=== PATIENT | male | born 1945 | race Caucasian/White ===

== ENCOUNTER → 2020-09-26 09:16 | Outpatient (CLI) | payer MEDICARE, SELFPAY ==
[2020-09-26 10:39] LABS: Add Manual Diff / Slide Review NO; Basophils Absolute Auto 100 /uL (0-100); Basophils Percent Auto 0.9 % (0-2); Eosinophils Absolute Auto 200 /uL (0-450); Hematocrit 47.3 % (41-53); Lymphocytes Absolute Auto 2400 /uL (1100-4500); Lymphocytes Percent Auto 34.9 % (25-40); Mean Corpuscular HGB Conc 33.8 % (30-36); Mean Corpuscular Hemoglobin 31.6 PG (26-34); Mean Corpuscular Volume 93.4 fL (80-100); Monocytes Absolute Auto 600 /uL (0-900); Monocytes Percent Auto 8.5 % (3-14); Neutrophils Absolute Auto 3600 /uL (1500-7000); Neutrophils Percent Auto 52.7 % (50-75); Platelet Count 188 X10^3/uL (150-400); Red Blood Cell Count 5.06 X10^6/uL (4.5-5.9); Red Cell Distribution Width 13.9 % (11.6-14.8); White Blood Cell Count 6.8 X10^3/uL (4.5-11.0)
[2020-09-26 11:02] LABS: Alanine Aminotransferase 28 IU/L (<50); Albumin 4.7 g/dL (3.5-5.0); Albumin Globulin Ratio 1.6 (1.0-2.8); Alkaline Phosphatase 90 U/L (38-126); Aspartate Aminotransferase 29 IU/L (17-59); BUN Creatinine Ratio 14.6 (6-22); Bilirubin Total 0.5 mg/dL (0.2-1.3); Blood Urea Nitrogen 15 mg/dL (9-20); Calcium 9.8 mg/dL (8.4-10.2); Carbon Dioxide 29 mmol/L (22-32); Chloride 105 mmol/L (98-107); Cholesterol 153 mg/dL (140-199); Estimated Glomerular Filt Rate > 60.0 mL/min (>60); Globulin 2.9 g/dL (1.7-4.1); Glucose 91 mg/dL (80-110); HDL Cholesterol 48 mg/dL (40-60); HEMOLYSIS < 15 (0-50); LDL Cholesterol Calculated 79 mg/dL (<100); Potassium 3.6 mmol/L (3.4-5.1); Sodium 142 mmol/L (137-145); Total Protein 7.6 g/dL (6.3-8.2); Triglycerides 129 mg/dL (35-150)
== END ==
PROVIDERS: PCP Family Medicine; Referring Provider Family Medicine; Visit Provider Family Medicine
DX: E78.5 Hyperlipidemia, unspecified (principal)
CPT/HCPCS: 36415; 80053; 80061; 85025

== ENCOUNTER → 2021-03-29 11:06 | Outpatient (CLI) | payer MEDICARE, SELFPAY ==
[2021-03-29] MEDS: COVID-19 VACC #3, MRNA(MOD) 50 MCG/0.25 ML VIAL IM (11:16)
== END ==
PROVIDERS: PCP Family Medicine; Visit Provider Internal Medicine
DX: Z23 Encounter for immunization (principal)
CPT/HCPCS: 0013A; 91301

== ENCOUNTER → 2022-03-13 06:59 | Outpatient (CLI) | payer MEDICARE, SELFPAY ==
[2022-03-13 09:48] LABS: Add Manual Diff / Slide Review NO; Basophils Absolute Auto 100 /uL (0-100); Basophils Percent Auto 0.8 % (0-2); Eosinophils Absolute Auto 300 /uL (0-450); Eosinophils Percent Auto 3.9 % (2-4); Hematocrit 45.9 % (41-53); Hemoglobin 15.5 g/dL (13.5-17.5); Lymphocytes Absolute Auto 2700 /uL (1100-4500); Lymphocytes Percent Auto 37.6 % (25-40); Mean Corpuscular HGB Conc 33.7 % (30-36); Mean Corpuscular Volume 92.1 fL (80-100); Monocytes Absolute Auto 700 /uL (0-900); Monocytes Percent Auto 9.6 % (3-14); Neutrophils Absolute Auto 3400 /uL (1500-7000); Neutrophils Percent Auto 48.1 % (50-75); Platelet Count 195 X10^3/uL (150-400); Red Blood Cell Count 4.98 X10^6/uL (4.5-5.9); Red Cell Distribution Width 14.3 % (11.6-14.8); White Blood Cell Count 7.1 X10^3/uL (4.5-11.0)
[2022-03-13 10:23] LABS: Alanine Aminotransferase 35 IU/L (<50); Albumin 4.3 g/dL (3.5-5.0); Albumin Globulin Ratio 1.5 (1.0-2.8); Alkaline Phosphatase 101 U/L (38-126); Aspartate Aminotransferase 28 IU/L (17-59); BUN Creatinine Ratio 15.3 (6-22); Bilirubin Total 0.5 mg/dL (0.2-1.3); Blood Urea Nitrogen 15 mg/dL (9-20); Carbon Dioxide 26 mmol/L (22-32); Chloride 103 mmol/L (98-107); Cholesterol 154 mg/dL (140-199); Estimated Glomerular Filt Rate > 60 mL/min (>60); Globulin 2.8 g/dL (1.7-4.1); Glucose 78 mg/dL (80-110); HDL Cholesterol 49 mg/dL (40-60); HEMOLYSIS < 15 (0-50); LDL Cholesterol Calculated 90 mg/dL (<100); Potassium 3.5 mmol/L (3.4-5.1); Sodium 140 mmol/L (137-145); Total Protein 7.1 g/dL (6.3-8.2); Triglycerides 74 mg/dL (35-150)
[2022-03-13 10:42] LABS: Prostate Specific Antigen Scrn 4.41 ng/mL (0.1-4.0)
== END ==
PROVIDERS: PCP Family Medicine; Referring Provider Family Medicine; Visit Provider Family Medicine
DX: E78.5 Hyperlipidemia, unspecified (principal); Z12.5 Encounter for screening for malignant neoplasm of prostate; R39.9 Unspecified symptoms and signs involving the genitourinary system; Z83.3 Family history of diabetes mellitus
CPT/HCPCS: 36415; 80053; 80061; 85025; G0103

== ENCOUNTER → 2022-09-01 13:17 | Outpatient (CLI) | payer MEDICARE, SELFPAY ==
--- NOTE | 2022-09-01 13:19 | DI.RAD.S_ITS ---
PROCEDURE: XR CHEST 2V INDICATIONS: Ongoing cough TECHNIQUE: 2 views of the chest were acquired. COMPARISON: None. FINDINGS: Surgical changes and devices: None. Lungs and pleura: Lungs are clear. No pleural effusions or pneumothorax. Mediastinum: Mediastinal contours are normal. Heart size is normal. Bones and chest wall: No suspicious bony abnormalities. Soft tissues appear unremarkable. IMPRESSION: No evidence acute pulmonary process. Dictated by: Rick Mccarty M.D. on 09/01/2022 at 13:42 Approved by: Rick Mccarty M.D. on 09/01/2022 at 13:43
== END ==
PROVIDERS: PCP Family Medicine; Referring Provider Physician Assistant; Visit Provider Physician Assistant
DX: R06.00 Dyspnea, unspecified (principal)
CPT/HCPCS: 71046

== ENCOUNTER → 2022-09-16 10:25 | Outpatient (CLI) | payer MEDICARE, SELFPAY ==
--- NOTE | 2022-09-16 10:28 | DI.CT.S_ITS ---
PROCEDURE: CT CHEST WO CON INDICATIONS: persistent cough TECHNIQUE: Noncontrast 5 mm thick sections acquired from the pulmonary apices to the posterior costophrenic angles. 1 mm lung window, 5 mm thick coronal and sagittal and 7 mm axial MIP reformats were then acquired. For radiation dose reduction, the following was used: automated exposure control, adjustment of mA and/or kV according to patient size. COMPARISON: [facility], CR, XR CHEST 2V, 09/01/2022, 13:18. FINDINGS: Lungs and pleura: No consolidation, significant ground-glass opacity, pleural effusions or pneumothorax. Mediastinum: No pericardial effusion. Thoracic aorta and central pulmonary arteries are normal in size. Esophagus is normal in caliber. Bones and chest wall: Multilevel degenerative change of the visualized spine. No axillary or supraclavicular adenopathy by size criteria. Abdomen: Small hypodensity in hepatic segment 4 is too small to characterize but could potentially represent a cyst or hemangioma. IMPRESSION: No consolidation or pleural effusion. Dictated by: Ehsan Bach M.D. on 09/16/2022 at 15:22 Approved by: Ehsan Bach M.D. on 09/16/2022 at 15:29
== END ==
PROVIDERS: PCP Family Medicine; Referring Provider Family Medicine; Visit Provider Family Medicine
DX: R05.9 Cough, unspecified (principal)
CPT/HCPCS: 71250

== ENCOUNTER → 2022-11-07 08:50 | Outpatient (CLI) | payer MEDICARE, SELFPAY ==
[2022-11-07 11:22] LABS: Cholesterol 166 mg/dL (140-199); HDL Cholesterol 57 mg/dL (40-60); LDL Cholesterol Calculated 91 mg/dL (<100); Triglycerides 89 mg/dL (35-150)
== END ==
PROVIDERS: PCP Family Medicine; Referring Provider Family Medicine; Visit Provider Family Medicine
DX: E78.5 Hyperlipidemia, unspecified (principal)
CPT/HCPCS: 36415; 80061

== ENCOUNTER → 2023-02-17 09:45 | Outpatient (CLI) | payer MEDICARE, SELFPAY ==
[2023-02-17 11:03] LABS: Cholesterol 196 mg/dL (140-199); HDL Cholesterol 50 mg/dL (40-60); LDL Cholesterol Calculated 128 mg/dL (<100); Triglycerides 91 mg/dL (35-150)
[2023-02-17 11:29] LABS: Prostate Specific Antigen Scrn 4.76 ng/mL (0.1-4.0)
== END ==
PROVIDERS: PCP Family Medicine; Referring Provider Family Medicine; Visit Provider Family Medicine
DX: E78.5 Hyperlipidemia, unspecified (principal); Z12.5 Encounter for screening for malignant neoplasm of prostate; N52.9 Male erectile dysfunction, unspecified
CPT/HCPCS: 36415; 80061; G0103

== ENCOUNTER → 2023-03-25 13:15 | Outpatient (CLI) | payer MEDICARE, SELFPAY ==
--- NOTE | 2023-03-25 13:17 | DI.MRI.S_ITS ---
PROCEDURE: MR PELVIC PROSTATE PROTOCOL INDICATIONS: Elevated and rising PSA TECHNIQUE: Coronal HASTE, axial T1 FSE with fat saturation, 3-plane nonbreath-hold T2 FSE. After the administration of contrast, dynamic axial, delayed axial and coronal VIBE or 2-D FLASH with fat saturation through the pelvis. Diffusion weighted imaging and ADC was performed. COMPARISON: None. FINDINGS: Image quality: Diffusion weighted and dynamic contrast enhanced images are diagnostic. Prostate: Gland size is 5.2 x 6.1 x 5.8 cm; ellipsoid gland volume is 95.7 mL. There is moderate transition zone hypertrophy and mild compression of the peripheral zone. Throughout most of the transition zone, there is diffuse moderate T2 hypointensity with a few T2 hyperintense BPH nodules present. Lesion 1: At the mid gland level posteriorly in the left (and right) peripheral zone near the midline, there is erased charcoal appearance blurring the pseudo capsule, 4/13, without significant diffusion or dynamic enhancement abnormality. Extracapsular extension cannot be excluded. PI-RADS 3. Lesion 2: In the right posterolateral peripheral zone at the mid gland level, 4/11, there is moderate amorphous T2 hypointensity with mild restricted diffusion and vague, heterogeneous ADC hypointensity. No dynamic contrast enhancement. PI-RADS 4. Lesion 3: In the left anterior to mid transition zone at the gland base, there is an amorphous, ovoid lesion with indistinct margin and moderate T2 hypointensity measuring roughly 1.7 cm, series 4, image 9 and coronal series 5, image 10. No corresponding restricted diffusion and mild, heterogeneous ADC hypointensity. There is dynamic enhancement. Differential diagnosis includes BPH nodule. PI-RADS 3. Genitourinary system: Bladder wall thickness is normal. Distal ureters are non distended. Bowel and peritoneum: No pathologic free pelvic fluid. Inferior colon and small bowel loops are normal in caliber. Nodes and vessels: No pelvic or inguinal adenopathy by size criteria. Numerous tiny lymph nodes are present throughout the pelvic fat, particularly sidewalls and perirectal. Iliac vessels are normal in caliber. Soft tissues: Left-sided fat and colon containing indirect inguinal hernia. Bones: Marrow demonstrates normal overall signal, without lesions to suggest metastases. IMPRESSION: 1. Enlarged prostate with overall unusual diffuse T2 hypointensity with loss of architecture and peripheral and transition zone. Finding is suspicious for diffuse low level involvement. 2. A few discrete lesions in the peripheral zone are suspicious though are categorized as PI-RADS 3 and PI-RADS 4. 3. Left transition zone lesion is PI-RADS 3 due to lack of restricted diffusion. 4. No pelvic lymphadenopathy by size criteria. No aggressive osseous abnormality. Dictated by: Tracy Joseph M.D. on 03/25/2023 at 23:38 Approved by: Tracy Joseph M.D. on 03/26/2023 at 0:00
== END ==
PROVIDERS: PCP Family Medicine; Referring Provider Urology; Visit Provider Urology
DX: N40.0 Benign prostatic hyperplasia without lower urinary tract symptoms (principal); N42.9 Disorder of prostate, unspecified; R97.20 Elevated prostate specific antigen [PSA]
CPT/HCPCS: 72197

== ENCOUNTER → 2023-05-02 13:43 | Outpatient (CLI) | payer MEDICARE, SELFPAY | PROVIDERS: PCP Family Medicine; Visit Provider Nurse Practitioner Family | DX: R30.0 Dysuria (principal) | CPT/HCPCS: 87086 ==

== ENCOUNTER 2023-05-12 10:17 | Day surgery (SDC) | payer MEDICARE, SELFPAY ==
[2023-04-22 14:42] VITALS: BMI 25.7
[2023-05-12] MEDS: LACTATED RINGERS 1,000 ML 21 ML IV (10:52)
[2023-05-12 10:56] VITALS: BP 180/87; PULSE 77; RESP 20; TEMP 36.4; O2SAT 97; BMI 25.7
--- NOTE | 2023-05-12 11:04 | PM.PREOP ---
Pre-operative Note COVID-19 COVID-19 status: Not tested Interval Note History & Physical reviewed/Exam performed by Physician: Yes Changes to H&P: No
[2023-05-12] MEDS: GENTAMICIN 80 MG in SODIUM CHLORIDE 0.9% 100 ML 102 MG IV (11:34)
[2023-05-12] MEDS: LIDOCAINE 2% INJ MDV 20ML 20 ML INJ (11:35)
--- NOTE | 2023-05-12 11:38 | SUR.OPER ---
Lithotomy on padded OR bed, head on pillow, arms secured on padded arm boards at <90 degrees abduction. Legs secured in padded yellow fins stirrups.
--- NOTE | 2023-05-12 11:52 | PM.OP.1 ---
Procedure & Clinicians Procedure: Transrectal ultrasound with needle biopsy of the prostate Same procedure as scheduled: Yes Indications: This 77-year-old male was found to have an elevated PSA went on to have MRI of the prostate which revealed a PI-RADS 4 lesion in the right mid peripheral prostate as well as some PI-RADS 3 lesions scattered throughout the prostate. He presents at this time for transrectal ultrasound needle biopsy of the prostate. This is being done in the operating room under anesthetic because of his previous colon surgeries and significant pain experienced in the clinic. Patient comes with bowel prep, oral antibiotics and gentamicin. Surgeon: hTa Marlow Click Yes if Unassisted: Yes Anesthesia Type: General Operative Notes Findings: At ultrasound the seminal vesicles and ampulla vas were normal position configuration and echotexture. The bladder was only partially filled so definitive comment can not be made but what was seen appeared normal with perhaps some slight thickening of the wall of the bladder. The ureteral jets were not observed. The outlined the prostate does appear preserved without evidence of extracapsular extension there were a number of stones in the prostate no true hypoechoic lesion there was an irregular area on the right in the mid gland which was biopsied. Prostate was measured at 75.09 mL. Biopsies were taken in the following fashion on the right there were 2 samples taken from the base, 4 samples taken from the right mid gland with the irregularity observe specifically being target for 1 of the samples. And then from the right apex 2 samples. On the left there were 2 samples from the base, 3 samples from the mid gland where there was a PI-RADS 3 lesion and 2 samples from the apex. Closure Type: not applicable Specimen(s): other (Prostate core samples) Prosthetic devices, grafts, tissues, transplants, or devices: None Procedure in detail: Procedure in detail: After informed consent was obtained, the patient was identified and brought to the operating room where he was placed in a supine position on the operative table. Once there anesthesia was induced and maintained. Ensuring an adequate level of anesthesia the patient was transitioned to the lithotomy position. Ensuring an adequate level of anesthesia, after time-out and ensuring administration of the antibiotics a digital exam was performed and showed that the patient had an empty rectal vault. Patient then had 2% viscous lidocaine instilled within the rectum allowing time for a block to set up ultrasound probe was inserted and periprostatic block with lidocaine was then performed. Serial images were then taken through the transverse and longitudinal planes of the prostate with pest control service representative images being collected via the image collection device. Biopsies were then taken as noted above after the prostate had been measured. With the biopsies in hand the prostate measured the ultrasound probe was removed the patient was awakened having tolerated the procedure well there were no complications. The lubricant was then cleaned from the rectal area digital exam performed and there was minimal blood noted. Patient will follow-up with the biopsy results. Complications: none Post-operative Condition: stable Disposition: PACU Plan for aftercare: Follow-up with biopsy results in my office.
[2023-05-12 11:54] VITALS: BP 97/58; PULSE 90; RESP 16; TEMP 36.9; O2SAT 94
[2023-05-12 11:58] VITALS: BP 102/65; PULSE 15; RESP 95
[2023-05-12 12:05] VITALS: BP 117/69; PULSE 80; RESP 14; O2SAT 95
[2023-05-12 12:10] VITALS: BP 120/78; PULSE 81; RESP 17; O2SAT 96
[2023-05-12 12:16] VITALS: BP 146/82; PULSE 78; RESP 12; O2SAT 95
== END 2023-05-12 12:41 | disposition home or self-care (01) ==
PROVIDERS: PCP Family Medicine; Referring Provider Urology; Visit Provider Urology
PROC: 0VH071Z Insertion of Radioactive Element into Prostate, Via Natural or Artificial Opening (ICD-10-PCS; CPT 55876; principal; 2023-05-12 11:45)
DX: N42.89 Other specified disorders of prostate (principal); R97.20 Elevated prostate specific antigen [PSA]; N42.0 Calculus of prostate
CPT/HCPCS: 55700; 76872; J2704; J3010; J3490

== ENCOUNTER → 2023-08-20 08:00 | Outpatient (CLI) | payer MEDICARE, SELFPAY ==
[2023-08-20 09:30] LABS: Cholesterol 150 mg/dL (140-199); HDL Cholesterol 50 mg/dL (40-60); LDL Cholesterol Calculated 87 mg/dL (<100); Triglycerides 64 mg/dL (35-150)
== END ==
PROVIDERS: PCP Family Medicine; Referring Provider Urology; Visit Provider Urology
DX: C61 Malignant neoplasm of prostate (principal); E78.5 Hyperlipidemia, unspecified
CPT/HCPCS: 36415; 80061; 84153

== ENCOUNTER → 2023-11-19 08:37 | Outpatient (CLI) | payer MEDICARE, SELFPAY ==
[2023-11-19 11:01] LABS: Prostate Specific Antigen 5.55 ng/mL (0.10-4.00)
== END ==
LOC: LAB 08:41
PROVIDERS: PCP Family Medicine; Referring Provider Urology; Visit Provider Urology
DX: R97.20 Elevated prostate specific antigen [PSA] (principal)
CPT/HCPCS: 36415; 84153

== ENCOUNTER 2024-01-13 11:42 | Day surgery (SDC) | payer MEDICARE, SELFPAY ==
--- NOTE | 2024-01-12 07:45 | P.HP_ITS ---
History of Present Illness History of Present Illness Date Patient Seen: 01/13/24 Time Patient Seen: 14:42 Chief complaint: SDC Narrative: 78-year-old man with a symptomatic inguinal hernia here for elective repair. No interval change in health since last H&P. [facility] Medical History Left inguinal hernia Nocturia Prostate cancer Abnormal finding on imaging Dementia with behavioral disturbance Secondhand smoke exposure Urinary frequency History of urinary tract infection Rising PSA level Elevated PSA Cough Hx of colon cancer, stage I Upper extremity somatic dysfunction Pain in thumb joint with movement Thumb joint locking Seborrheic keratosis, inflamed Lower urinary tract symptoms (LUTS) Allergies Mumps Tinnitus Ruptured tympanic membrane Hearing loss Colorectal cancer (~2002) Actinic keratosis of scalp Family history of diabetes mellitus in first degree relative Physical exam, routine Erectile dysfunction Hyperlipidemia Essential tremor (~1994) Surgical History Anesthesia H/O hernia repair (~1954) H/O colectomy (~2002) History of tonsillectomy Family History Father Heart disease Mother Diabetes mellitus Sister Diabetes mellitus Lupus Grandmother Diabetes mellitus Grandfather Heart disease Social History household members: spouse Smoking Status: Never smoker alcohol intake: former substance use type: does not use Meds Home Medications and Allergies Home Medications Medication Instructions Recorded Confirmed Type simvastatin 10 mg tablet 5 mg PO BEDTIME 08/26/23 01/13/24 History tadalafil 5 mg tablet 5 mg PO BID #180 tabs 12/30/23 01/13/24 Rx Allergies Allergy/AdvReac Type Severity Reaction Status Date / Time donepezil AdvReac Intermediate Vomiting Verified 01/13/24 13:34 gabapentin AdvReac Intermediate Fatigued Verified 01/13/24 13:34 primidone AdvReac Intermediate Diarrhea Verified 01/13/24 13:34 propranolol AdvReac Intermediate Diarrhea Verified 01/13/24 13:34 Exam Narrative Exam Narrative: General adult man alert oriented no acute distress Abdomen left inguinal hernia marked with my initials. Assessment & Plan Assessment and plan (1) Left inguinal hernia: Status: Acute Assessment & Plan narrative: 78-year-old man here for a open left inguinal hernia repair for a symptomatic reducible hernia. Overview of the operation once again discussed including risks hemorrhage, infection, recurrence, chronic pain benefits and alternatives. His questions have been answered. He provides his consent to proceed. Time-Based Coding :: [TOTAL MINUTES] spent with patient and on the chart (including review of chart, obtaining history, exam, reviewing outside data, placing orders, documenting exam and treatment plan, and counseling patient) on [DATE].
[2024-01-13] VITALS (7 sets, daily range): BP systolic 153–191; BP diastolic 83–97; PULSE 75–85; RESP 12–17; TEMP 36.7; O2SAT 93–98; BMI 25.7
--- NOTE | 2024-01-13 12:34 | SUR.PREOP ---
pt's surgery delayed. 1 patient ahead of him. Family and pt made aware of delay. Will likely bring pt back at 1330. pt and family verbalize understanding and waiting patiently in lobby
[2024-01-13] MEDS: LACTATED RINGERS 1,000 ML 21 ML IV (14:01)
[2024-01-13] MEDS: CEFAZOLIN 2 GM/100 ML PREMIX 100 ML IV (15:20)
--- NOTE | 2024-01-13 15:24 | SUR.OPER ---
Supine on padded OR bed, head on pillow, arms secured on padded arm boards at <90 degrees abduction, legs uncrossed, safety belt at thigh, tape over blanket over lower legs.
[2024-01-13] MEDS: BUPIVACAINE 0.25% (PF) VIAL 30 ML INJ (15:50)
--- NOTE | 2024-01-13 16:15 | P.OP_ITS ---
Operative Date/Time/Diagnoses Date of procedure: 01/13/24 Time of procedure: 16:15 Pre-op diagnosis: Left inguinal Post-op diagnosis: same Procedure & Clinicians Procedure: Open left inguinal hernia repair with mesh Same procedure as scheduled: Yes Indications: Symptomatic reducible left inguinal hernia containing bowel Surgeon: Luis Alberto Alberts Battery Starter: Gary Ann Anesthesia Type: General Operative Notes Findings: large indirect defect containing colon Specimen(s): none sent Estimated Blood Loss (mL): 50 Procedure in detail: The patient was placed supine on the table and bilateral lower extremity compression devices were applied. Anesthesia was induced they were intubated with an LMA and received Ancef. A time-out was performed. They were prepped and draped in sterile fashion. The left external inguinal ring and the anterior superior iliac crest were identified and marked. 1 finger breath above the inguinal ligament the skin was infiltrated with 0.25% bupivacaine. The skin incision was made, the subcutaneous tissues were divided with electrocautery exposing the external oblique aponeurosis which was then opened along the direction of its fibers. Using blunt dissection the internal oblique aporneurosis was from the external oblique upper leaflet. The cord was carefully dissected away from the inguinal canal adjacent to the pubic tubercle. The cord including the vas deferens, testicular bloody supply, ilioguinal and genital nerve were encircled with a Parvin drain. No direct floor defect identify. The cremasteric fibers surrounding the cord were divided adjacent to the internal ring. The vas deferens and the testicular vessels were preserved and protected. The cord contents were carefully explored. There was a indirect hernia on the anterior medial aspect of the cord. The hernia sac was opened it contained viable portion of colon which was reduced back into the abdomen. Hernia sac was then closed. A 7x 15 cm lightweight Bard Pro Loop hernia mesh was anchored to the insertion of the rectus muscle at the pubic tubercle such that there was approximately 2 cm of tubercle overlap with Ethibond. The inferior edge of the mesh was secured to the shelving edge of the inguinal ligament using Ethibond. Interrupted 3 0 Vicryl suture was used to anchor the superior aspect of the mesh to the conjoined tendon in several places. The tails were then reapproximated loosely around the spermatic cord. The tails of the mesh were then tucked under the external oblique aponeurosis. The repair was checked for hemostasis. The wound was irrigated with sterile saline. The external oblique aponeurosis was reapproximated in a running fashion using 3 0 Vicryl. The subcutaneous tissues were reapproximated with 3 0 Vicryl skin closed with 4 0 Monocryl followed by the application of Dermabond. At the end of the operation I ensured that both testicles were within the scrotum. The sponge instrument count at the end operation was correct. The patient emerged from anesthesia was extubated and transferred to the postoperative care unit in stable condition. A total of 30 ml of of 0.25% bupivicaine was used to infiltrate the skin. Complications: none Post-operative Condition: stable Disposition: same day surgery
[2024-01-13] MEDS: OXYCODONE IR 5 MG TABLET PO ×2 (16:43→17:13)
[2024-01-13] MEDS: ACETAMINOPHEN 325 MG TABLET 650 MG PO (17:35)
== END 2024-01-13 17:50 | disposition home or self-care (01) ==
PROVIDERS: PCP Family Medicine; Referring Provider Surgery; Visit Provider Surgery
PROC: (CPT 49505; principal; 2024-01-13 13:15)
DX: K40.90 Unilateral inguinal hernia, without obstruction or gangrene, not specified as recurrent (principal)
CPT/HCPCS: 49505; 82962; J0690; J1100; J1170; J2405; J2704; J3010

== ENCOUNTER 2024-01-30 09:04 | Emergency (ER) | payer MEDICARE, SELFPAY ==
[2024-01-30 09:17] VITALS: BP 210/98; PULSE 72; RESP 16; TEMP 36.6; O2SAT 96; BMI 26.4
--- NOTE | 2024-01-30 09:17 | ED_ITS ---
HPI - General Adult General Chief complaint: Urogenital-Male Stated complaint: urinary retention Time Seen by Provider: 01/30/24 09:09 Source: patient and family Mode of arrival: Ambulatory Limitations: no limitations History of Present Illness HPI narrative: Patient is a 78-year-old male. Has been under the care urology secondary to prostate cancer and elevations in his PSA. Also recently had a left inguinal h ernia repair. No history urinary retention requiring a Clemens catheter. Over the past several days he has had increasing urinary frequency, incontinence. Has some lower abdominal discomfort. Is here for evaluation of concern of urinary retention. Related Data Home Medications Medication Instructions Recorded Confirmed simvastatin 10 mg tablet 5 mg PO BEDTIME 08/26/23 01/28/24 Previous Rx's Medication Instructions Recorded tadalafil 5 mg tablet 5 mg PO BID #180 tabs 12/30/23 acetaminophen 500 mg capsule 1,000 mg (2 x 500 mg) PO Q6H PRN 01/13/24 pain #60 caps celecoxib 200 mg capsule (Celebrex) 200 mg PO BID #20 caps 01/13/24 docusate sodium 100 mg capsule 100 mg PO BID #30 caps 01/13/24 (Colace) Allergies Allergy/AdvReac Type Severity Reaction Status Date / Time donepezil AdvReac Intermediate Vomiting Verified 01/30/24 09:23 gabapentin AdvReac Intermediate Fatigued Verified 01/30/24 09:23 primidone AdvReac Intermediate Diarrhea Verified 01/30/24 09:23 propranolol AdvReac Intermediate Diarrhea Verified 01/30/24 09:23 Review of Systems Constitutional Constitutional: Reports system reviewed and no additional complaints, except as documented Genitourinary Genitourinary: Reports system reviewed and no additional complaints, except as documented Integumentary/Breasts Skin/Breast: Reports system reviewed and no additional complaints, except as documented Patient History Medical History Left inguinal hernia Nocturia Prostate cancer Abnormal finding on imaging Dementia with behavioral disturbance Secondhand smoke exposure Urinary frequency History of urinary tract infection Rising PSA level Elevated PSA Cough Hx of colon cancer, stage I Upper extremity somatic dysfunction Pain in thumb joint with movement Thumb joint locking Seborrheic keratosis, inflamed Lower urinary tract symptoms (LUTS) Allergies Mumps Tinnitus Ruptured tympanic membrane Hearing loss Colorectal cancer (~2002) Actinic keratosis of scalp Family history of diabetes mellitus in first degree relative Physical exam, routine Erectile dysfunction Hyperlipidemia Essential tremor (~1994) Surgical History Anesthesia H/O hernia repair (~1954) H/O colectomy (~2002) History of tonsillectomy Family History Father Heart disease Mother Diabetes mellitus Sister Diabetes mellitus Lupus Grandmother Diabetes mellitus Grandfather Heart disease Social History household members: spouse Smoking Status: Never smoker alcohol intake: former substance use type: does not use Smoking Status: Never smoker Substance Use Type: does not use Exam Initial Vital Signs Initial Vital Signs: Vital Signs Temperature 97.8 F 01/30/24 09:17 Pulse Rate 72 01/30/24 09:17 Respiratory Rate 16 01/30/24 09:17 Blood Pressure 210/98 H 01/30/24 09:17 Pulse Oximetry 96 01/30/24 09:17 Oxygen Delivery Method Room Air 01/30/24 09:17 GI Inspection: distended Palpation: soft and tender (Left lower abdomen) External: normal external exam Skin Other: Surgical incision in the left inguinal area appears to be healing very well no signs of infection. Course Orders Ordered: ED Orders 01/30/24 09:17 Urinalysis and Microscopic Stat Discontinued Medications Lidocaine HCl (Lidocaine 2% (Glydo) 6 Ml Gel) 6 ml TOP NOW ONE Stop: 01/30/24 09:17 Last Admin: 01/30/24 09:22 Dose: 6 ml Vital Signs Vital signs: Vital Signs - 8 hr 01/30/24 09:17 Temperature 97.8 F Pulse Rate 72 Respiratory Rate 16 Blood Pressure 210/98 H Pulse Oximetry 96 Oxygen Delivery Method Room Air Medical Decision Making Lab Data Lab results reviewed: Yes I reviewed the patient's lab results. Labs: Lab Results 01/30/24 Range/Units 09:43 Urine Color Yellow Urine Appearance Clear Urine pH 6.0 (4.5-8.0) Ur Specific [place] 1.020 (1.000-1.035) Urine Protein Negative (Negative) Urine Glucose (UA) Negative (Negative) g/dL Urine Ketones Negative (NEGATIVE) Urine Occult Blood Trace-intact (Negative) Urine Nitrate Negative (Negative) Urine Bilirubin Negative (NEGATIVE) Urine Urobilinogen 0.2 (0.2) E.U./dL Ur Leukocyte Esterase Negative (NEGATIVE) Urine RBC 0-1/hpf (0-5/HPF) Urine WBC 0-1/hpf (0-5/HPF) Ur Squamous Epith Cells 0-1 /hpf (0-5/HPF) Urine Bacteria None seen (None) Ur Culture Indicated? Cult not indicated Vol Urine Centrifuged 10ml (spun) MDM Narrative Medical decision making narrative: No signs of urinary tract infection on urinalysis. I suspect that the cause of his urinary retention today is because of an enlarged prostate. Plan will be to leave the Clemens catheter in place and have him follow up with his urologist at the beginning of next week. Discharge Plan Departure Patient Disposition: Home Clinical Impression: Acute urinary retention Instructions: How to Care for Your Clemens Catheter -- Male, DI for Urinary Retention in Men Activity Restrictions/Additional Instructions: Recommend that you contact your urologist office at the beginning of next week for a follow-up. Return to the emergency department for new symptoms. Prescriptions: No Action tadalafil 5 mg tablet 5 mg PO BID Qty: 180 0RF acetaminophen 500 mg capsule 1,000 mg PO Q6H PRN (Reason: pain) Qty: 60 0RF celecoxib [Celebrex] 200 mg capsule 200 mg PO BID Qty: 20 0RF docusate sodium [Colace] 100 mg capsule 100 mg PO BID Qty: 30 0RF simvastatin 10 mg tablet 5 mg PO BEDTIME Referrals: Tha Marlow MD [Physician] - Maxim Villa DO [Primary Care Provider] - Stand Alone Forms: Patient Portal/API
[2024-01-30] MEDS: LIDOCAINE 2% (GLYDO) 6 ML GEL TOP (09:22)
[2024-01-30 09:52] LABS: Appearance Urine UA CLEAR; Bilirubin Urine UA NEGATIVE (NEGATIVE); Color Urine UA YELLOW; Glucose Urine UA NEGATIVE (Negative); Ketones Urine UA NEGATIVE (NEGATIVE); Leukocyte Esterase Urine UA NEGATIVE (NEGATIVE); Nitrite Urine UA NEGATIVE (Negative); Occult Blood Urine UA TRACE-INTACT (Negative); Protein Urine UA NEGATIVE (Negative); Urobilinogen Urine UA 0.2 E.U./dL (0.2)
[2024-01-30 10:04] LABS: Bacteria Urine None Seen; Culture Indicated Urine Cult Not Indicated; RBC Urine 0-1/HPF (0-5/HPF); Squamous Epithelial Cell Urine 0-1 /HPF (0-5/HPF); Urine Volume 10mL (spun); WBC Urine 0-1/HPF (0-5/HPF)
--- NOTE | 2024-01-30 10:14 | PC.NURSE ---
Difficulty urinating x1 day. Pt notes leaking from urethra.
[2024-01-30 10:27] VITALS: BP 184/86; RESP 16
== END 2024-01-30 10:28 | disposition home or self-care (01) ==
PROVIDERS: Emergency Provider Emergency Medicine; PCP Family Medicine
DX: R33.8 Other retention of urine (principal); C61 Malignant neoplasm of prostate
CPT/HCPCS: 51798; 81001; 99283

== ENCOUNTER 2024-02-11 15:09 | Emergency (ER) | payer MEDICARE, SELFPAY ==
[2024-02-11 15:30] VITALS: BP 154/77; PULSE 86; RESP 18; TEMP 37.2; O2SAT 96; BMI 27.7
[2024-02-11 17:00] VITALS: BP 150/70; PULSE 89; RESP 14; O2SAT 97
--- NOTE | 2024-02-11 17:01 | DI.CT.S_ITS ---
PROCEDURE: CT ABDOMEN PELVIS WO CON INDICATIONS: Hematuria, R flank pain TECHNIQUE: Axial sections were acquired from the lung bases to the pubic symphysis. Coronal and sagittal reformats were performed. For radiation dose reduction, the following was used: automated exposure control, adjustment of mA and/or kV according to patient size. COMPARISON: None. FINDINGS: Image quality: Diagnostic. Lower Chest: Small dependent right pleural effusion. Patchy right lower lung airspace opacity and strandy interstitial thickening in the left lung base. Tiny hiatal hernia. Normal size heart. URINARY: Right Kidney: No stones or hydronephrosis. Right Ureter: No hydroureter, ureteral calculus, or periureteric inflammation. Left Kidney: No stones or hydronephrosis. Inferior pole cyst. Upper pole cyst with trace peripheral calcification. Left Ureter: No hydroureter, ureteral calculus, or periureteric inflammation. Bladder: Clemens catheter is present. The urinary bladder is predominantly decompressed. The wall is diffusely thickened and indistinct. Mild perivesicular inflammation. ABDOMEN: Liver: No contour-deforming solid mass. Scattered hypodensities too small to characterize, likely cysts. Gallbladder: No wall thickening or calcified stones. Biliary ducts: No biliary dilation. Pancreas: Normal size and morphology without visible ductal dilatation or inflammation. Spleen: Normal size. Adrenal Glands: No adrenal nodules. Stomach and Bowel: Stomach and small bowel loops are normal caliber. Appendix was not seen. Solid stool in the colon. There is a colorectal anastomosis. Peritoneum: No abnormal intraperitoneal fluid. No free air. Ventral Wall: No hernia. Abdominal Nodes: Shotty periportal and retroperitoneal nodes. No bulky adenopathy. Vessels: The abdominal aorta, IVC, and portal vein are of normal caliber. PELVIS: Pelvic Organs: Moderate prostatomegaly. Pelvic Nodes: Borderline bilateral pelvic adenopathy and inguinal adenopathy. Miscellaneous: Probable prior left inguinal hernia repair. Bones: Unremarkable. No discrete lesions. IMPRESSION: Clemens catheter partially decompressing the urinary bladder is wall is diffusely thickened and indistinct. This may be due to treatment changes. Hematuria may be due to presence of Clemens catheter. There is moderate prostatomegaly. Borderline bilateral inguinal and pelvic adenopathy. This is nonspecific. No obstructing stones or hydronephrosis. Right lower lung airspace disease and effusion. Correlate clinically. Dictated by: Tracy Joseph M.D. on 02/11/2024 at 18:06 Approved by: Tracy Joseph M.D. on 02/11/2024 at 18:15
[2024-02-11 17:21] LABS: Add Manual Diff / Slide Review NO; Basophils Absolute Auto 100 /uL (0-100); Basophils Percent Auto 0.5 % (0-2); Eosinophils Absolute Auto 100 /uL (0-450); Eosinophils Percent Auto 0.9 % (2-4); Hematocrit 42.5 % (41-53); Hemoglobin 14.4 g/dL (13.5-17.5); Lymphocytes Absolute Auto 1700 /uL (1100-4500); Lymphocytes Percent Auto 13.4 % (25-40); Mean Corpuscular Hemoglobin 31.6 PG (26-34); Mean Corpuscular Volume 93.1 fL (80-100); Monocytes Absolute Auto 1300 /uL (0-900); Monocytes Percent Auto 10.3 % (3-14); Neutrophils Absolute Auto 9600 /uL (1500-7000); Neutrophils Percent Auto 74.9 % (50-75); Platelet Count 200 X10^3/uL (150-400); Red Blood Cell Count 4.56 X10^6/uL (4.5-5.9); White Blood Cell Count 12.8 X10^3/uL (4.5-11.0)
[2024-02-11] MEDS: cefTRIAXone 2,000 MG in SODIUM CHLORIDE 0.9% 100 ML 200 MG IV (17:29)
[2024-02-11] MEDS: SODIUM CHLORIDE 0.9% 952.54 ML IV (17:30)
[2024-02-11 17:31] LABS: PTT Partial Thromboplastin Tim 32 SECONDS (25.1-36.5)
[2024-02-11 17:32] LABS: Lactate (Lactic Acid) 0.9 mmol/L (0.7-2.1)
[2024-02-11 17:33] LABS: Alanine Aminotransferase 164 IU/L (<50); Albumin Globulin Ratio 1.3 (1.0-2.8); Alkaline Phosphatase 156 U/L (38-126); Aspartate Aminotransferase 139 IU/L (17-59); BUN Creatinine Ratio 14.3 (6-22); Bilirubin Total 0.9 mg/dL (0.2-1.3); Blood Urea Nitrogen 12 mg/dL (9-20); Carbon Dioxide 23 mmol/L (22-32); Chloride 105 mmol/L (98-107); Estimated Glomerular Filt Rate > 60 mL/min (>60); Glucose 101 mg/dL (80-110); HEMOLYSIS 29 (0-50); Sodium 135 mmol/L (137-145)
[2024-02-11 17:36] LABS: INR 1.2 (0.9-1.3); Prothrombin Time 13.4 SECONDS (9.4-12.5)
[2024-02-11 17:41] LABS: Creatine Kinase 30 U/L (55-170)
[2024-02-11 17:54] LABS: Troponin I < 0.012 ng/mL (0.01-0.034)
[2024-02-11 17:59] LABS: Procalcitonin 0.083 ng/mL (<0.5)
[2024-02-11] MEDS: SODIUM CHLORIDE 0.9% 1,000 ML 1000 ML IV (18:00)
[2024-02-11 18:21] LABS: Appearance Urine UA SL CLOUDY; Bilirubin Urine UA NEGATIVE (NEGATIVE); Glucose Urine UA NEGATIVE (Negative); Ketones Urine UA NEGATIVE (NEGATIVE); Leukocyte Esterase Urine UA 1+ (NEGATIVE); Nitrite Urine UA NEGATIVE (Negative); Occult Blood Urine UA 3+ (Negative); Protein Urine UA TRACE (Negative); Urobilinogen Urine UA 0.2 E.U./dL (0.2); pH Urine UA 7.5 (4.5-8.0)
[2024-02-11 18:22] LABS: Color Urine UA Yellow
[2024-02-11 18:28] LABS: Bacteria Urine Occasional (0-1); Culture Indicated Urine Specimen Cultured; RBC Urine 30-100/HPF (0-5/HPF); Squamous Epithelial Cell Urine 0-1 /HPF (0-5/HPF); Urine Volume 10mL (spun); WBC Urine 1-5/HPF (0-5/HPF)
[2024-02-11 18:39] VITALS: BP 166/76; PULSE 88; RESP 18; O2SAT 98
--- NOTE | 2024-02-11 18:40 | ED_ITS ---
<Statement entered by Yonathan Gonsales DO - 02/11/24 19:02> Dr. Gonsales: I was immediately available in the department for consultation. Documentation has been reviewed. I agree with assessment and plan. HPI - Male Genitourinary General Chief complaint: Urogenital-Male Stated complaint: kidney pain Time Seen by Provider: 02/11/24 16:49 Source: patient and family Mode of arrival: Ambulatory History of Present Illness HPI Narrative: This patient is a 78-year-old male and has had an indwelling urinary Clemens catheter in place for the past 12 days. He has had 1 day of hematuria which cleared up with increasing clear fluid intake, per his urologist orders. Yesterday, the patient had chills in had slight worsening confusion. The patient does have a history of dementia. He is accompanied by his at bedside. No other treatments have been tried for this. He states he has had some low right-sided back pain. He denies testicular pain, rectal pain, saddle anesthesia, nausea, vomiting, chest pain or shortness of breath. The patient is supposed to have a cystogram next week and they were unable to reach the urologist today prior to ER visit. Related Data Home Medications Medication Instructions Recorded Confirmed simvastatin 10 mg tablet 5 mg PO BEDTIME 08/26/23 01/28/24 Previous Rx's Medication Instructions Recorded tadalafil 5 mg tablet 5 mg PO BID #180 tabs 12/30/23 acetaminophen 500 mg capsule 1,000 mg (2 x 500 mg) PO Q6H PRN 01/13/24 pain #60 caps celecoxib 200 mg capsule (Celebrex) 200 mg PO BID #20 caps 01/13/24 docusate sodium 100 mg capsule 100 mg PO BID #30 caps 01/13/24 (Colace) lidocaine 4 % topical gel 1 applic topical TID PRN pain #10 01/30/24 grams ciprofloxacin HCl 250 mg tablet 250 mg PO BID #6 tabs 02/03/24 ciprofloxacin HCl 500 mg tablet 500 mg PO BID #14 tabs 02/11/24 (Cipro) Allergies Allergy/AdvReac Type Severity Reaction Status Date / Time donepezil AdvReac Intermediate Vomiting Verified 01/30/24 09:23 gabapentin AdvReac Intermediate Fatigued Verified 01/30/24 09:23 primidone AdvReac Intermediate Diarrhea Verified 01/30/24 09:23 propranolol AdvReac Intermediate Diarrhea Verified 01/30/24 09:23 Review of Systems Review of Systems Narrative: General: See HPI : See HPI All other review of systems have been reviewed and are ultimately negative unless otherwise stated in HPI. Patient History Medical History Left inguinal hernia Nocturia Prostate cancer Abnormal finding on imaging Dementia with behavioral disturbance Secondhand smoke exposure Urinary frequency History of urinary tract infection Rising PSA level Elevated PSA Cough Hx of colon cancer, stage I Upper extremity somatic dysfunction Pain in thumb joint with movement Thumb joint locking Seborrheic keratosis, inflamed Lower urinary tract symptoms (LUTS) Allergies Mumps Tinnitus Ruptured tympanic membrane Hearing loss Colorectal cancer (~2002) Actinic keratosis of scalp Family history of diabetes mellitus in first degree relative Physical exam, routine Erectile dysfunction Hyperlipidemia Essential tremor (~1994) Surgical History Anesthesia H/O hernia repair (~1954) H/O colectomy (~2002) History of tonsillectomy Family History Father Heart disease Mother Diabetes mellitus Sister Diabetes mellitus Lupus Grandmother Diabetes mellitus Grandfather Heart disease Social History household members: spouse Smoking Status: Never smoker alcohol intake: former substance use type: does not use Smoking Status: Never smoker alcohol intake frequency: a few times a week Substance Use Type: does not use Exam Initial Vital Signs Initial Vital Signs: Vital Signs Temperature 98.9 F 02/11/24 15:30 Pulse Rate 86 02/11/24 15:30 Respiratory Rate 18 02/11/24 15:30 Blood Pressure 154/77 H 02/11/24 15:30 Pulse Oximetry 96 02/11/24 15:30 Oxygen Delivery Method Room Air 02/11/24 15:30 Const General: cooperative, healthy appearing, comfortable, well developed and well groomed [facility] Head: normal to inspection, normocephalic and atraumatic Eyes General: Yes appearance normal, both eyes and all related structures Neck Neck: normal visual inspection, full ROM and no meningeal signs Resp Effort & Inspection: normal respiratory effort and able to speak in complete sentences Auscultation: clear to auscultation bilaterally Cardio Rate: regular rate Rhythm: regular rhythm Heart Sounds: S1 normal and S2 normal GI Inspection: normal to inspection Palpation: soft and no hepatosplenomegaly Other: Possible early right-sided CVA tenderness. No obvious pain with examination. Clemens catheter in place with dark brown urine. Skin General: no rashes or lesions noted, elasticity normal and turgor normal Neuro General: patient alert, patient awake, patient oriented x3, gait normal, moves all extremities, normal light touch, pain and propioception and CN's II-XI intact bilaterally Extrem General: normal to inspection and full ROM Psych Appearance: grossly normal and well kempt Course Course Course Narrative: Patient was seen and examined. There was concern for possible early sepsis due to the Clemens catheter being placed for 12 days and there has been no antibiotics prescribed by his urologist. Labs, including blood cultures were given. Once the lactic acid and white blood cell count were noted to be within normal limits, the patient then had 2 L of normal saline versus 30 mL/kg. The urinalysis reveals 1+ leukocyte esterase and obvious hematuria. The patient had a CT scan of the abdomen and pelvis performed which did not reveal any evidence of pyelonephritis, nephrolithiasis or obstructive uropathy. The patient also received Rocephin 2 g IV while waiting for lab results. The patient was notified of the findings, as well as his at bedside. At this time, it appears that the patient has an early urinary tract infection without evidence of pyelonephritis, overwhelming sepsis or an acute kidney injury. I will start him on Cipro twice a day for the next 7 days until he can see his urologist either tomorrow or early next week. Patient and understand the treatment plan. There were no additional questions at the time of discharge and they will follow up as requested. The patient has tolerated ciprofloxacin in the past Orders Ordered: ED Orders 02/11/24 17:01 CT abdomen pelvis wo con Stat 02/11/24 17:08 CBC Auto Diff [Complete Blood Count AUTO DIFF] Stat CMP [Comprehensive Metabolic Panel] Stat Lactate (Lactic Acid) Stat PTT Partial Thromboplastin Tyrese Stat Procalcitonin Stat Prothrombin Time INR Stat Troponin & CK Cardiac Panel Stat 02/11/24 17:22 Blood Culture Stat 02/11/24 18:12 UA Complete [Urinalysis and Microscopic] Stat Urine Culture Stat Discontinued Medications Sodium Chloride (Normal Saline 0.9%) 2,857.62 mls @ 952.54 mls/hr 30 ml/kg infuse over 3 hr (2857.62 ml) IV NOW ONE Stop: 02/11/24 20:08 Last Infusion: 02/11/24 18:32 Dose: Infused Documented By: Infusion: 02/11/24 17:59 Dose: 0 mls/hr Documented By: Admin: 02/11/24 17:30 Dose: 952.54 mls/hr Documented By: NURYS Ceftriaxone Sodium 2,000 mg/ (Sodium Chloride) 100 mls @ 200 mls/hr IV NOW ONE Stop: 02/11/24 17:10 Last Infusion: 02/11/24 17:58 Dose: Infused Documented By: Admin: 02/11/24 17:29 Dose: 200 mls/hr Documented By: NURYS Sodium Chloride (Normal Saline 0.9%) 1,000 mls @ 1,000 mls/hr IV BOLUS ONE Stop: 02/11/24 18:44 Last Admin: 02/11/24 18:00 Dose: 1,000 mls/hr Documented By: NURYS Sodium Chloride (Normal Saline 0.9%) 1,000 mls @ 1,000 mls/hr IV BOLUS ONE Stop: 02/11/24 18:45 Last Admin: 02/11/24 18:03 Dose: Not Given Documented By: NURYS Vital Signs Vital signs: Vital Signs - 8 hr 02/11/24 15:30 02/11/24 17:00 02/11/24 18:39 Temperature 98.9 F Pulse Rate 86 89 88 Respiratory Rate 18 14 18 Blood Pressure 154/77 H 150/70 H 166/76 H Pulse Oximetry 96 97 98 Oxygen Delivery Method Room Air Room Air MDM - Male Genitourinary Differential Diagnosis Differential diagnosis: Likely urinary tract infection, urethritis, epididymitis, prostatitis, acute retention of urine and other (Acute kidney injury, obstructive uropathy, nephrolithiasis, septic stone) Lab Data 02/11/24 17:08 02/11/24 17:08 Labs: Lab Results 02/11/24 02/11/24 Range/Units 17:08 18:12 WBC 12.8 H (4.5-11.0) X10^3/uL RBC 4.56 (4.5-5.9) X10^6/uL Hgb 14.4 (13.5-17.5) g/dL Hct 42.5 (41-53) % MCV 93.1 (80-100) fL MCH 31.6 (26-34) PG MCHC 34.0 (30-36) % RDW 14.0 (11.6-14.8) % Plt Count 200 (150-400) X10^3/uL Neut % (Auto) 74.9 (50-75) % Lymph % (Auto) 13.4 L (25-40) % Wilkes % (Auto) 10.3 (3-14) % Eos % (Auto) 0.9 L (2-4) % Baso % (Auto) 0.5 (0-2) % Neut # (Auto) 9600 H (2926-5410) /uL Lymph # (Auto) 1700 (5345-2548) /uL Wilkes # (Auto) 1300 H (0-900) /uL Eos # (Auto) 100 (0-450) /uL Baso # (Auto) 100 (0-100) /uL PT 13.4 H (9.4-12.5) SECONDS INR 1.2 (0.9-1.3) APTT 32 (25.1-36.5) SECONDS Sodium 135 L (137-145) mmol/L Potassium 4.0 (3.4-5.1) mmol/L Chloride 105 (98-107) mmol/L Carbon Dioxide 23 (22-32) mmol/L BUN 12 (9-20) mg/dL Creatinine 0.84 (0.66-1.25) mg/dL Estimated GFR > 60 (>60) mL/min BUN/Creatinine Ratio 14.3 (6-22) Glucose 101 (80-110) mg/dL Lactate 0.9 (0.7-2.1) mmol/L Calcium 9.0 (8.4-10.2) mg/dL Total Bilirubin 0.9 (0.2-1.3) mg/dL AST 139 H (17-59) IU/L ALT 164 H (<50) IU/L Alkaline Phosphatase 156 H (38-126) U/L Total Creatine Kinase 30 L (55-170) U/L Troponin I < 0.012 (0.01-0.034) ng/mL Total Protein 7.0 (6.3-8.2) g/dL Albumin 4.0 (3.5-5.0) g/dL Globulin 3.0 (1.7-4.1) g/dL Albumin/Globulin Ratio 1.3 (1.0-2.8) Procalcitonin 0.083 (<0.5) ng/mL Urine Color Yellow Urine Appearance Sl cloudy Urine pH 7.5 (4.5-8.0) Ur Specific Murray 1.010 (1.000-1.035) Urine Protein Trace H (Negative) Urine Glucose (UA) Negative (Negative) g/dL Urine Ketones Negative (NEGATIVE) Urine Occult Blood 3+ H (Negative) Urine Nitrate Negative (Negative) Urine Bilirubin Negative (NEGATIVE) Urine Urobilinogen 0.2 (0.2) E.U./dL Ur Leukocyte Esterase 1+ H (NEGATIVE) Urine RBC 30-100/hpf H (0-5/HPF) Urine WBC 1-5/hpf (0-5/HPF) Ur Squamous Epith Cells 0-1 /hpf (0-5/HPF) Urine Bacteria Occasional (0-1) (None) Ur Culture Indicated? Specimen cultured Vol Urine Centrifuged 10ml (spun) MDM Narrative Medical decision making narrative: See above Discharge Plan Departure Patient Disposition: Home Clinical Impression: Hematuria Qualifiers: Hematuria type: unspecified type Qualified Code(s): R31.9 - Hematuria, unspecified Urinary tract infection Qualifiers: Urinary tract infection type: acute cystitis Hematuria presence: with hematuria Qualified Code(s): N30.01 - Acute cystitis with hematuria Complication of indwelling urinary catheter Qualifiers: Device complication type: infection Indwelling urinary catheter type: i ndwelling urethral catheter Encounter type: initial encounter Qualified Code(s): T83.511A - Infection and inflammatory reaction due to indwelling urethral catheter, initial encounter Instructions: How to Care for Your Clemens Catheter -- Male, DI for Urinary Tract Infection (UTI) Activity Restrictions/Additional Instructions: Start the antibiotic as prescribed tomorrow morning Increase clear fluid intake Return here immediately if worse Contact your urologist tomorrow and advise him of your ER visit today Prescriptions: New ciprofloxacin HCl [Cipro] 500 mg tablet 500 mg PO BID Qty: 14 0RF No Action tadalafil 5 mg tablet 5 mg PO BID Qty: 180 0RF ciprofloxacin HCl 250 mg tablet 250 mg PO BID Qty: 6 0RF Rx Instructions: Take one tablet by mouth twice daily one day prior to cystoscopy, the day of cystoscopy, and the day after cystoscopy. DO NOT TAKE SIMVASTATIN WHILE ON THIS MEDICATION. acetaminophen 500 mg capsule 1,000 mg PO Q6H PRN (Reason: pain) Qty: 60 0RF celecoxib [Celebrex] 200 mg capsule 200 mg PO BID Qty: 20 0RF docusate sodium [Colace] 100 mg capsule 100 mg PO BID Qty: 30 0RF lidocaine 4 % gel 1 applic topical TID PRN (Reason: pain) Qty: 10 2RF simvastatin 10 mg tablet 5 mg PO BEDTIME Referrals: Maxim Villa DO [Primary Care Provider] - Stand Alone Forms: Patient Portal/API
== END 2024-02-11 18:46 | disposition home or self-care (01) ==
PROVIDERS: Emergency Provider Physician Assistant; PCP Family Medicine
DX: T83.511A Infection and inflammatory reaction due to indwelling urethral catheter, initial encounter (principal); N30.01 Acute cystitis with hematuria; R41.0 Disorientation, unspecified; F03.90 Unspecified dementia, unspecified severity, without behavioral disturbance, psychotic disturbance, mood disturbance, and anxiety
CPT/HCPCS: 36415; 74176; 80053; 81001; 82550; 83605; 84145; 84484; 85025; 85610; 85730; 87040; 87086; 96365; 99284; J0696

== ENCOUNTER → 2024-03-16 16:28 | Outpatient (CLI) | payer MEDICARE, SELFPAY | PROVIDERS: PCP Family Medicine; Visit Provider Urology | DX: C61 Malignant neoplasm of prostate (principal); R31.0 Gross hematuria; R97.20 Elevated prostate specific antigen [PSA]; R33.9 Retention of urine, unspecified; F03.918 Unspecified dementia, unspecified severity, with other behavioral disturbance; Z77.22 Contact with and (suspected) exposure to environmental tobacco smoke (acute) (chronic) | CPT/HCPCS: 51798; 81002; 87086; 99214 ==

== ENCOUNTER → 2024-03-18 10:35 | Outpatient (CLI) | payer MEDICARE, SELFPAY | PROVIDERS: PCP Family Medicine; Visit Provider Urology | DX: R31.0 Gross hematuria (principal); Z68.24 Body mass index [BMI] 24.0-24.9, adult | CPT/HCPCS: 51798; 81002; 87086 ==

== ENCOUNTER → 2024-04-28 13:31 | Outpatient (CLI) | payer MEDICARE, SELFPAY ==
[2024-04-28 15:02] LABS: Prostate Specific Antigen 4.69 ng/mL (0.10-4.00)
== END ==
PROVIDERS: PCP Family Medicine; Referring Provider Urology; Visit Provider Urology
DX: R97.20 Elevated prostate specific antigen [PSA] (principal); C61 Malignant neoplasm of prostate
CPT/HCPCS: 36415; 84153

== ENCOUNTER → 2024-06-03 14:16 | Outpatient (CLI) | payer MEDICARE, SELFPAY ==
[2024-06-03 16:30] LABS: Prostate Specific Antigen 5.17 ng/mL (0.10-4.00)
== END ==
PROVIDERS: PCP Family Medicine; Referring Provider Urology; Visit Provider Urology
DX: R97.20 Elevated prostate specific antigen [PSA] (principal); C61 Malignant neoplasm of prostate
CPT/HCPCS: 36415; 84153

== ENCOUNTER → 2024-08-26 14:03 | Outpatient (CLI) | payer MEDICARE, SELFPAY ==
[2024-08-26 16:44] LABS: Prostate Specific Antigen 5.51 ng/mL (0.10-4.00)
== END ==
PROVIDERS: PCP Family Medicine; Referring Provider Urology; Visit Provider Urology
DX: C61 Malignant neoplasm of prostate (principal)
CPT/HCPCS: 36415; 84153

== ENCOUNTER → 2024-11-25 13:23 | Outpatient (CLI) | payer MEDICARE, SELFPAY ==
[2024-11-25 14:53] LABS: Prostate Specific Antigen 5.40 ng/mL (0.10-4.00)
== END ==
PROVIDERS: PCP Family Medicine; Referring Provider Urology; Visit Provider Urology
DX: R97.20 Elevated prostate specific antigen [PSA] (principal)
CPT/HCPCS: 84153

== ENCOUNTER 2025-01-13 06:25 | Day surgery (SDC) | payer MEDICARE, SELFPAY ==
[2025-01-06 12:35] VITALS: BMI 25.0
[2025-01-13 06:58] VITALS: BP 174/92; PULSE 96; RESP 16; TEMP 36.2; O2SAT 98; BMI 25.0
[2025-01-13] MEDS: ACETAMINOPHEN 325 MG TABLET 975 MG PO (07:19)
--- NOTE | 2025-01-13 07:40 | PM.PREOP ---
Pre-operative Note COVID-19 COVID-19 status: Not tested Interval Note History & Physical reviewed/Exam performed by Physician: Yes Changes to H&P: No
--- NOTE | 2025-01-13 08:01 | SUR.OPER ---
Pt positioned on left lateral side on padded gurney, warm blankets placed over patient.
[2025-01-13] MEDS: LIDOCAINE 1% 20 ML INJ (08:07)
--- NOTE | 2025-01-13 08:17 | P.OP_ITS ---
Operative Date/Time/Diagnoses Date of procedure: 01/13/25 Time of procedure: 08:00 Pre-op diagnosis: Prostate cancer Post-op diagnosis: same Procedure & Clinicians Procedure: Transrectal ultrasound guided prostate biopsy Same procedure(s) as scheduled: Yes Indications: 79 y/o M diagnosed w/ low-risk prostate cancer via a TRUS prostate biopsy in May that was previously managed by Dr. Marlow via active surveillance which was merely checking his PSA every 3 months. Discussed that per AUA guidelines, active surveillance is the preferred treatment for low-risk prostate cancer. Discussed in detail that active surveillance currently entails: serial PSA/ELVIA every 6 months, confirmatory biopsy within 12-18 months of original diagnosis, prostate MRI and a repeat prostate biopsy alternating every 18 months thereafter. If any of the aforementioned pieces of evaluation (PSA, ELVIA, prostate MRI) are concerning, then a repeat prostate biopsy would come at an earlier interval. Also discussed that a TRUS prostate biopsy may not always identify prostate cancer that is present as it is a small sampling of the prostate gland and small foci of cancer may be missed. Lastly, discussed that some men may require multiple biopsies over several years in order to properly diagnose their prostate cancer. Discussed the risks of the procedure to include but not limited to pain, bleeding, infection, blood in the stool for several weeks, blood and/or blood clots within the urine for several weeks as well as bloody ejaculate for several months. Up to 1-2% of men may get an infection from their biopsy that is severe enough that they require admission to the hospital and administration of IV antibiotics. To mitigate this risk, he will u se a bowel prep the night before and the morning of the procedure as well as take an antibiotic the morning before, the morning of and the morning after his biopsy. Surgeon: Oscar Perez Click Yes if Unassisted: Yes Anesthesia Type: MAC +/- Operative Notes Findings: 97g prostate Closure Type: not applicable Specimen(s): other (prostate biopsy) Applied: none Estimated Blood Loss (mL): 2 Blood products transfused: none Procedure in detail: Transrectal Ultrasound of the Prostate with Needle Biopsy: [id number] Indication: 79 y/o M w/ low-risk prostate cancer who is in need of a confirmatory TRUS prostate biopsy. Following informed consent and MAC, he was transitioned into the left lateral decubitus position. The ultrasound probe was then coated in lubrication and gently inserted into his rectum. A total of 10cc of 1% Lidocaine was used for local anesthetic throughout the procedure. Transrectal US images of his prostate were then performed and a volume of 97 cc was calculated. A total of 12 biopsies were taken from the prostate and submitted as six different pathologic specimens (right base, right mid, right apex, left base, left mid, left apex). An additional 3 biopsies were taken from a PIRADS 4 lesion that were submitted as lesion 1. Hemostasis was evaluated at the end of the procedure and noted to be excellent. He tolerated the procedure well without any complciations and the ultrasound probe was gently removed from his rectum. Anesthesia was reversed, he was then transferred to the PACU in stable condition for recovery. Complications: none Post-operative Condition: stable Disposition: PACU Plan for aftercare: Discharge home from PACU. Will have him return to Urology clinic to discuss his prostate biopsy results in the next 2-3 business weeks.
[2025-01-13 08:21] VITALS: BP 114/68; PULSE 88; RESP 16; TEMP 36.9; O2SAT 93
[2025-01-13 08:25] VITALS: BP 128/71; PULSE 92; RESP 22; O2SAT 92
[2025-01-13 08:31] VITALS: BP 138/78; PULSE 90; RESP 19; TEMP 37.2; O2SAT 93
[2025-01-13] MEDS: PHENAZOPYRIDINE 100 MG TABLET 200 MG PO (09:13)
[2025-01-13] MEDS: TAMSULOSIN 0.4 MG CAPSULE PO (09:14)
== END 2025-01-13 09:43 | disposition home or self-care (01) ==
PROVIDERS: PCP Family Medicine; Referring Provider Urology; Visit Provider Urology
PROC: 0VJ43ZZ Inspection of Prostate and Seminal Vesicles, Percutaneous Approach (ICD-10-PCS; CPT 55876; principal; 2025-01-13 07:45)
DX: C61 Malignant neoplasm of prostate (principal); R35.0 Frequency of micturition; R35.1 Nocturia
CPT/HCPCS: 55700; 76872; 76942; J1100; J2405; J2704; J3010